=== PATIENT | male | born 1960 | race Caucasian/White ===

== ENCOUNTER → 2018-12-23 | Outpatient (CLI) | payer MEDICARE, MEDICAID, SELFPAY ==
[2018-12-23 11:26] LABS: International Normalized Ratio 2.7; Prothrombin Time (Protime)PT. 28.6 SECONDS (11.7-14.9)
== END | disposition home or self-care (01) ==
LOC: LABSPEC 11:02
PROVIDERS: Family Provider Family Medicine; PCP Family Medicine; Referring Provider Family Medicine; Visit Provider Family Medicine
DX: I48.91 Unspecified atrial fibrillation (principal); I26.99 Other pulmonary embolism without acute cor pulmonale
CPT/HCPCS: 85610

== ENCOUNTER 2019-02-03 09:15 | Emergency (ER) | payer MEDICARE, MEDICAID, SELFPAY ==
[2019-02-03] VITALS (7 sets, daily range): BP systolic 114–142; BP diastolic 71–95; PULSE 76–160; RESP 14–26; TEMP 36.4; O2SAT 94–100; BMI 58.0
--- NOTE | 2019-02-03 09:36 | EKG12_ITS ---
Test Reason : CP Blood Pressure : / mmHG Vent. Rate : 178 BPM Atrial Rate : 182 BPM P-R Int : 000 ms QRS Dur : 116 ms QT Int : 260 ms P-R-T Axes : 000 -28 134 degrees QTc Int : 447 ms Atrial fibrillation with rapid ventricular response with premature ventricular or aberrantly conducte d complexes Inferior infarct (cited on or before 14-SEP-2002) Anteroseptal infarct , age undetermined Marked ST abnormality, possible lateral subendocardial injury Abnormal ECG Confirmed by THEO OHARA ([id number]), field map editor FAY DAVIDSON ([id number]) on 02/08/2019 1:31:46 PM Referred By: DORETHA/DEBBIE Confirmed By:GEETHA OHARA
--- NOTE | 2019-02-03 09:38 | ED.VIS.GEN ---
History of Present Illness Chief Complaint: Palpitations Detail of Chief Complaint: A. fib with RVR Informant: Patient, PCP Onset: Days - Onset January 31 Context: Sudden Onset Timing: Continuous Quality: Palpitations/rapid heart rate Location: Chest Current Severity: Moderate Maximum Severity: Moderate Worsened by: Nothing Relieved by: Nothing Associated Symptoms: Dyspnea on exertion otherwise nothing Narrative: Patient is a 58-year-old male who was under the care of Dr. Anthony Huynh for age fibrillation, hypertension and hypercholesterolemia. Patient is on Coumadin. INR was 3.1 on February 01. He presents with palpitation. He complains of significant shortness of breath walking up incline. He states this is not normal for him. He denies chest pain, pressure or tightness. He denies neck pain or jaw pain. He denies pain to his shoulders or extremities. He has no other complaints. He last ate at 0445. Prior similar symptoms: No Recent Illness/Hospitalization: No - Past Medical History (1) History of atrial fibrillation Status: Acute (2) History of hypertension Status: Acute Past Medical History - Allergies and Home Meds Allergies/Adverse Reactions: Allergies No Known Allergies Allergy (Verified 02/03/19 09:16) Primary Care Physician: Jaime Muller MD [Primary Care Provider] - Prior records reviewed: Yes Surgical History: noncontributory Lives: Alone Smoking Status: Never smoker Alcohol: None Drugs: None Review of Systems General: Denies: Chills, Fever, Malaise, Sweats Eyes: Denies: Visual changes - bilaterally, Blurred Vision - bilaterally ENT: Denies: Bilateral ear pain, Rhinorrhea, Sore throat Cardiovascular: Reports: Palpitations, Heart racing. Denies: Chest pain Respiratory: Reports: Dyspnea, Dyspnea on exertion, Paroxysmal nocturnal dyspnea. Denies: Cough, Sputum, Orthopnea Gastrointestinal: Denies: Abdominal pain, Nausea, Vomiting, Diarrhea, Melena, Hematochezia Genitourinary: Denies: Dysuria, Hematuria, Frequency Musculoskeletal: Denies: Myalgias, Arthralgias, Neck pain, Back pain, Extremity Pain Skin: Denies: Rash, Wounds Neurological: Denies: Headache, Weakness, Parasthesia, Numbness Psych: Denies: Depression, Anxiety Hematologic: Denies: Easy bruising, Easy bleeding, Lymphadenopathy, -, - Allergy: Denies: Uticaria, Swelling of the mouth, Swelling of the tongue, -, - Physical Exam Vital Signs/Narrative: Vital Signs Temp Pulse Resp BP Pulse Ox 02/03/19 09:22 97.5 F L 76 18 142/76 H 99 Inital Vital Signs reviewed: Yes General: Well nourished, Well developed, Obese, No Acute Distress Head: Normocephalic, Atraumatic Eyes: Perrl, EOMI. Negative for: Pale conjunctiva, Scleral icterus, - ENT: Moist mucous membranes, No rhinorrhea Neck: Supple, Nontender, No lymphadenopathy, No JVD Cardiovascular: Irregular, Tachycardia Respiratory: No distress, CTA bilaterally, Chest nontender Abdomen: Soft, Nontender, Nondistended, Normal bowel sounds, No masses - Unable to determine secondary to body habitus Rectal: Deferred Back: Nontender, Normal Inspection Extremities: Nontender, Edema - 2-3+ Skin: Normal color, Rash - Venous stasis dermatitis lower extremity Neurological: Alert, Oriented x3, Cranial nerves II-XII grossly intact, Normal Strength, Normal Sensation Psychological: Normal affect, Normal Mood Diagnostic/Tx/Re-eval Laboratory Results 02/03/19 02/03/19 09:36 09:36 WBC 11.0 RBC 4.50 L Hgb 12.6 L Hct 38.6 L MCV 85.8 MCH 28.0 MCHC 32.6 RDW 15.2 H RDW Differential 48.0 H Plt Count 238 MPV 11.0 Sodium 136 Potassium 3.3 L Chloride 103 Carbon Dioxide 21.0 Anion Gap 12 BUN 25 H Creatinine 1.56 H Estim Creat Clear Calc 59.04 Est GFR (MDRD) Af Amer 59 L Est GFR (MDRD) Non-Af 49 L BUN/Creatinine Ratio 16.0 Glucose 182 H Calcium 9.2 Troponin I < 0.015 - EKG Initial EKG Interpretation: Atrial Fibrillation - Ventricular rate 178. QRS duration is prolonged at [address]-T wave changes noted. This may be rate dependent. Follow-up EKG Interpretation: Sinus Tachycardia - Ventricular rate 108. There are premature ventricular beats noted. There is a nonspecific intraventricular block with a QRS duration 156. NJ interval is 176. There are ST-T wave segments most likely secondary to the intraventricular conduction delay. - Medical Decision Making Patient is tachycardic with wide-complex diaphoretic complaint of dyspnea on exertion and has not eaten since 445 and has a documented INR 3.12 days ago plan is to cardiovert. Patient was consented for sedation with etomidate and cardioversion. He was given opportunity ask questions. None were asked. He states he has called to see Dr. Medley since Dr. Gaspar is retired. I panel was obtained as well as CBC to assess H&H and troponin to evaluate for cardiac ischemia. Case discussed with cardiology. Agrees with plan. Will increase beta-masha dose and patient to call office for appointment. Procedures Procedure(s): Deep sedation and cardioversion: 1. Patient was sedated with a total of 14 mg of etomidate. Total procedure time 7 minutes. 2. Patient was successfully cardioverted using 200 J biphasic mode. ED Disposition - Plan for ED Patient: Disposition: Home or Assisted Living Diagnosis: Paroxysmal atrial fibrillation with RVR Instructions: ED Afib Referrals: Jaime Muller MD [Primary Care Provider] - Loree Adrian MD [STAFF PHYSICIAN] - 5-7 Days Additional Instructions: Call office and tell them you were seen in the emergency department and need an appointment to be seen beginning of next week
[2019-02-03 09:46] LABS: Hematocrit 38.6 % (40-54); Hemoglobin 12.6 g/dl (13.0-16.5); Mean Corp Hgb Conc 32.6 g/gl (32-36); Mean Corpuscular Volume 85.8 fL (80-94); Platelet Count 238 K/mm3 (150-450); RBC Distribution Width CV 15.2 % (11.6-14.6); Scan Indicated on CBC? Y/N NO
[2019-02-03 10:02] LABS: Anion Gap 12 (5-15); BUN 25 mg/dL (7-18); Calcium,Total 9.2 mg/dL (8.5-10.1); Chloride 103 mmol/L (98-107); Creatinine, Serum 1.56 mg/dL (0.70-1.30); EST Glomerular Filtration Rate 49 mL/min (>60); Est Glom Filt Rate - Afr Amer 59 mL/min (>60); Estimated Creatinine Clearance 59.04 ml/min; Glucose 182 mg/dL (74-106); Potassium 3.3 mmol/L (3.5-5.1); Sodium Level 136 mmol/L (136-145)
--- NOTE | 2019-02-03 10:03 | EKG12_ITS ---
Test Reason : REPEAT Blood Pressure : / mmHG Vent. Rate : 108 BPM Atrial Rate : 108 BPM P-R Int : 176 ms QRS Dur : 156 ms QT Int : 394 ms P-R-T Axes : 000 -18 074 degrees QTc Int : 527 ms Sinus tachycardia with occasional Premature ventricular complexes Non-specific intra-ventricular conduction block Cannot rule out Inferior infarct , age undetermined Abnormal ECG Confirmed by THEO OHARA ([id number]), web content editor FAY DAVIDSON ([id number]) on 02/08/2019 1:32:08 PM Referred By: DORETHA Confirmed By:GEETHA OHARA
== END 2019-02-03 11:56 | disposition home or self-care (01) ==
PROVIDERS: Emergency Provider Emergency Medicine; Family Provider Family Medicine; PCP Family Medicine
DX: I48.0 Paroxysmal atrial fibrillation (principal); I45.4 Nonspecific intraventricular block; I10 Essential (primary) hypertension; E78.00 Pure hypercholesterolemia, unspecified; E66.9 Obesity, unspecified; I87.2 Venous insufficiency (chronic) (peripheral); Z79.01 Long term (current) use of anticoagulants; Z79.84 Long term (current) use of oral hypoglycemic drugs; Z79.899 Other long term (current) drug therapy
CPT/HCPCS: 80048; 84484; 85027; 92960; 93005; 99284; J7030; A4216; J0153

== ENCOUNTER 2019-02-04 03:47 | Emergency (ER) | payer MEDICARE, MEDICAID, SELFPAY ==
[2019-02-03 09:22] VITALS: BMI 58.0
[2019-02-04 03:48] VITALS: BP 162/87; PULSE 124; PULSE 125; RESP 26; RESP 27; TEMP 37.2; O2SAT 97; O2SAT 98; BMI 59.4
--- NOTE | 2019-02-04 04:01 | ED.VIS.GEN ---
History of Present Illness Chief Complaint: Palpitations Informant: Patient Narrative: Patient stated he woke up approximately an hour ago and felt some palpitation was a concern he was back in atrial fibrillation. He was recently seen in the emergency department yesterday and had A. fib with RVR. He was cardioverted. His beta-masha was increased. He has not taken it this morning. He said he has some coughing when he woke up and noticed that heart his heart rate was fast we came back in. Denies any chest pain shortness of breath or other symptoms. He has had A. fib paroxysmal in the past and he is on Coumadin. 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 He has an appointment made. - Past Medical History (1) History of atrial fibrillation Status: Acute (2) History of hypertension Status: Acute Past Medical History - Allergies and Home Meds Allergies/Adverse Reactions: Allergies No Known Allergies Allergy (Verified 02/03/19 09:16) Primary Care Physician: Jaime Muller MD [Primary Care Provider] - Prior records reviewed: Yes Surgical History: noncontributory Smoking Status: Never smoker Alcohol: None Drugs: None Review of Systems General: Denies: Chills, Fever, Sweats Eyes: Denies: Visual changes - bilaterally, Diplopia ENT: Denies: Rhinorrhea, Sore throat Cardiovascular: Reports: Palpitations. Denies: Chest pain Respiratory: Denies: Dyspnea, Cough, Dyspnea on exertion Gastrointestinal: Denies: Abdominal pain, Nausea, Vomiting, Diarrhea, Melena, Hematochezia Genitourinary: Denies: Dysuria, Hematuria, Frequency Musculoskeletal: Denies: Back pain, Extremity Pain Skin: Denies: Rash, Wounds Neurological: Denies: Headache, Weakness, Numbness Physical Exam Vital Signs/Narrative: Vital Signs Temp Pulse Resp BP Pulse Ox 02/04/19 03:48 98.9 F 124 H 26 H 162/87 H 98 General: Well nourished, Well developed, No Acute Distress Head: Normocephalic, Atraumatic Eyes: Perrl, EOMI ENT: Moist mucous membranes, No rhinorrhea Neck: Supple, Nontender Cardiovascular: Regular rhythm, No murmurs, Tachycardia. Negative for: Regular rate Respiratory: No distress, CTA bilaterally, Chest nontender Abdomen: Soft, Nontender, Nondistended, Normal bowel sounds Back: Nontender, Normal Inspection Extremities: Nontender, No edema Skin: Normal color, No rash Neurological: Alert, Oriented x3, Cranial nerves II-XII grossly intact, Normal Strength, Normal Sensation Psychological: Normal affect, Normal Mood Diagnostic/Tx/Re-eval - Medical Decision Making EKG shows a sinus rhythm. Positive PVCs. Significant artifact. Patient resting comfortably. He stated that his symptoms have resolved. At this time I think he is just having PVCs with sinus tach. Given a dose of labetalol. Labetalol but his heart rate down further into the 90s. Resting comfortably. Occasional PVCs which is likely what he is feeling. I feel he can be discharged home. He will continue his medication. He is in normal sinus rhythm ED Disposition - Plan for ED Patient: Disposition: Home or Assisted Living Diagnosis: Palpitations, Premature ventricular contractions Instructions: Premature Ventricular Contractions, ED Palpitations Referrals: Jaime Muller MD [Primary Care Provider] -
[2019-02-04 04:22] VITALS: BP 146/70; PULSE 114; O2SAT 94
[2019-02-04 04:46] VITALS: BP 127/76; PULSE 92
--- NOTE | 2019-02-04 04:49 | EKG12_ITS ---
Test Reason : CP Blood Pressure : / mmHG Vent. Rate : 126 BPM Atrial Rate : 120 BPM P-R Int : 000 ms QRS Dur : 118 ms QT Int : 362 ms P-R-T Axes : 000 -26 093 degrees QTc Int : 524 ms Atrial Fibrillation Anteroseptal infarct , age undetermined ST & T wave abnormality, consider lateral ischemia Abnormal ECG Confirmed by THEO OHARA ([id number]), primer expeditor and drier FAY DAVIDSON ([id number]) on 02/08/2019 1:18:42 PM Referred By: RAVINDRA Confirmed By:GEETHA OHARA
[2019-02-04 05:00] VITALS: BP 131/79; PULSE 94; RESP 18; O2SAT 94
== END 2019-02-04 05:06 | disposition home or self-care (01) ==
PROVIDERS: Emergency Provider Emergency Medicine; Family Provider Family Medicine; PCP Family Medicine
DX: I49.3 Ventricular premature depolarization (principal); R00.2 Palpitations; I48.0 Paroxysmal atrial fibrillation; I10 Essential (primary) hypertension; Z79.01 Long term (current) use of anticoagulants; Z79.899 Other long term (current) drug therapy
CPT/HCPCS: 93005; 96374; 99283; A4216

== ENCOUNTER → 2019-02-26 | Outpatient (CLI) | payer MEDICARE, MEDICAID, SELFPAY ==
[2019-02-10 13:46] VITALS: BMI 56.9
--- NOTE | 2019-02-26 13:31 | ECHOCS_ITS ---
Version 3 Reason For Study: Afib/Flutter Procedure This was a 2D Doppler, Color Flow transthoracic echocardiogram. The study was technically difficult. Contrast injection was performed. Exam performed in department. Left Ventricle Normal size and thickness. The estimated ejection fraction is 50-55 %. Stage 1 diastolic dysfunction. No regional wall motion abnormalities noted. Right Ventricle Normal RV size. Normal systolic function. Atria Normal left atrium. Normal right atrium. Mitral Valve There is no mitral valve stenosis. Trivial mitral valve insufficiency. Tricuspid Valve There is no tricuspid stenosis. Unable to estimate RV systolic pressure due to inadequate jet, pulmonary artery pressure probably normal. Aortic Valve Trisinus/trileaflet aortic valve. Aortic sclerosis, no stenosis. There is no aortic stenosis. No aortic valve insufficiency. Pulmonic Valve There is no pulmonic valvular stenosis. No pulmonic valve insufficiency. Great Vessels Normal aortic root. Pericardium/Pleural No pericardial effusion. Medication 22 gauge I.V. with prn adaptor inserted into right arm. Diluted definity 3ml given slow IV push to enhance endocardial definition. MMode/2D Measurements & Calculations LAV(MOD-bp): 84.8 ml SV(MOD-sp4): 67.6 ml LVAd ap4: 44.5 cm2 LAV(MOD-bp) Indexed: 28.4 ml/m2 EDV(MOD-sp4): 181.8 ml LAV(MOD-sp2): 71.1 ml EDV(sp4-el): 190.3 ml LAV(MOD-sp4): 96.6 ml LVAs ap4: 33.5 cm2 ESV(MOD-sp4): 114.1 ml ESV(sp4-el): 115.1 ml EF(MOD-sp4): 37.2 % EF(sp4-el): 39.5 % SV(sp4-el): 75.2 ml LA A4 area: 27.3 cm2 Time Measurements MV dec time: 0.22 sec Doppler Measurements & Calculations MV E max michelet: 59.9 cm/sec Lat Peak E' Michelet: 9.8 cm/sec Med Peak E' Michelet: 6.1 cm/sec MV A max michelet: 101.6 cm/sec E/E' lat: 6.1 E/E' med: 9.9 MV E/A: 0.59 MV V2 max: 109.8 cm/sec MV P1/2t max michelet: 75.1 cm/sec Ao V2 max: 135.9 cm/sec MV max P.8 mmHg MV P1/2t: 80.4 msec Ao max P.4 mmHg MV V2 mean: 65.2 cm/sec MV dec slope: 273.8 cm/sec2 MV mean P.0 mmHg MVA(P1/2t): 2.7 cm2 MV V2 VTI: 27.2 cm LV V1 max: 82.3 cm/sec PA V2 max: 115.6 cm/sec LV V1 max P.7 mmHg Interpretation Summary The estimated ejection fraction is 50-55 %. Stage 1 diastolic dysfunction. Trivial mitral valve insufficiency. Aortic sclerosis, no stenosis. The study was technically difficult. Diluted definity 3ml given slow IV push to enhance endocardial definition. The study was technically difficult. Ordering Physician: Loree Adrian Referring Physician: MD Renzo Jaime Performed By: Bharat Latham [facility]
== END | disposition home or self-care (01) ==
LOC: CVS 13:30
PROVIDERS: Family Provider Family Medicine; PCP Family Medicine; Referring Provider Specialist; Visit Provider Specialist
DX: I48.0 Paroxysmal atrial fibrillation (principal)
CPT/HCPCS: 93306; Q9957; A4216; C8929

== ENCOUNTER 2019-05-03 23:18 | Emergency (ER) | payer MEDICARE, MEDICAID, SELFPAY ==
[2019-03-03 10:08] VITALS: BMI 55.9
[2019-05-03 23:20] VITALS: BP 163/94; PULSE 90; RESP 16; TEMP 36.6; O2SAT 95; BMI 55.4
--- NOTE | 2019-05-03 23:34 | ED.VIS.GEN ---
History of Present Illness Chief Complaint: Laceration Narrative: Patient is a 59-year-old male who presents due to bleeding from a right fifth toe wound. He was clipping his nail and accidentally clipped the skin on the tip of his toe. He has done this before and is usually been able to control the bleeding after few minutes. However it has continued to ooze for a couple hours now. He is on warfarin. He otherwise has no complaints. Past Medical History - Allergies and Home Meds Allergies/Adverse Reactions: Allergies No Known Allergies Allergy (Verified 05/03/19 23:22) Primary Care Physician: Jaime Muller MD [Primary Care Provider] - Past Medical History: - - Diabetes, hypertension, hyperlipidemia, atrial fibrillation Surgical History: noncontributory Smoking Status: Never smoker Review of Systems All systems negative except as indicated General: Denies: Fever Cardiovascular: Denies: Chest pain Respiratory: Denies: Dyspnea Skin: Reports: Wounds Physical Exam Vital Signs/Narrative: Vital Signs Temp Pulse Resp BP Pulse Ox 05/03/19 23:20 97.8 F 90 16 163/94 H 95 Inital Vital Signs reviewed: Yes General: Well nourished Head: Normocephalic Eyes: EOMI ENT: Moist mucous membranes Cardiovascular: Regular rate Respiratory: No distress Extremities: - - There is a small less than 1 cm wound on the tip of the fifth toe where a small amount of skin is been clipped away. He is not briskly bleeding but this is continuing to slowly ooze despite direct pressure. Diagnostic/Tx/Re-eval - Medical Decision Making A Surgicel dressing was applied with hemostasis. We will observe here for a short time to ensure that he does not saturate the dressing or have any evidence of ongoing bleeding and patient will be discharged. ED Disposition - Plan for ED Patient: Disposition: Home or Assisted Living Diagnosis: Wound of right foot Instructions: LACERATION, All Referrals: Jaime Muller MD [Primary Care Provider] -
[2019-05-03 23:56] VITALS: BP 128/67; PULSE 88; RESP 16; O2SAT 98
== END 2019-05-03 23:59 | disposition home or self-care (01) ==
PROVIDERS: Emergency Provider Emergency Medicine; Family Provider Family Medicine; PCP Family Medicine
DX: S91.104A Unspecified open wound of right lesser toe(s) without damage to nail, initial encounter (principal); X58.XXXA Exposure to other specified factors, initial encounter; Y93.9 Activity, unspecified; Y92.9 Unspecified place or not applicable; E11.9 Type 2 diabetes mellitus without complications; I10 Essential (primary) hypertension; E78.5 Hyperlipidemia, unspecified; I48.91 Unspecified atrial fibrillation; Z79.01 Long term (current) use of anticoagulants; Z79.84 Long term (current) use of oral hypoglycemic drugs; Z79.899 Other long term (current) drug therapy
CPT/HCPCS: 99283

== ENCOUNTER 2021-09-15 11:30 | Emergency (ER) | payer MEDICARE, SELFPAY ==
[2021-09-15 11:31] VITALS: BP 170/81; PULSE 82; RESP 16; TEMP 35.7; BMI 56.7
--- NOTE | 2021-09-15 11:49 | EDS_ITS ---
HPI History of Present Illness Chief Complaint: Lower Extremity Injury Informant: patient Onset/Context/Timing Onset: Today Current Severity: Mild Maximum Severity: Mild Narrative Narrative: Patient presents with bleeding to the left fourth toe. He was trimming his toenails and actually cut his skin. He is on Coumadin. He has not been able to get the bleeding to stop. His INR was checked earlier this week and was 2.3. He states he checks it weekly and it is usually in the 2 range. [facility] Medical History (Updated 09/15/21 @ 12:[address] Rachel Oglesby MD) Atherosclerosis of coronary artery of [place] heart without angina pectoris Depressive disorder DVT (deep venous thrombosis) (~2002) Essential hypertension History of diabetic neuropathy History of ulcer of lower extremity (~2003) Hyperlipidemia Osteoarthritis Paroxysmal atrial fibrillation Pulmonary embolism (~2002) PVC's (premature ventricular contractions) Type 2 diabetes mellitus without complication Home Medications atorvastatin 20 mg PO QHS 02/03/19 [History Last Taken Unknown] atorvastatin 40 mg PO QHS 02/03/19 [History Last Taken Unknown] chlorthalidone 25 mg PO BID 02/03/19 [History Last Taken Unknown] clonidine HCl 0.2 mg PO BID 02/03/19 [History Last Taken Unknown] losartan 50 mg PO DAILY 02/03/19 [History Last Taken Unknown] metformin 1,000 mg tablet 1,000 mg PO BID tab 02/04/19 [History Last Taken Unknown] potassium chloride 20 mEq tablet,extended release(part/cryst) 20 meq PO DAILY 02/04/19 [History Last Taken Unknown] metoprolol succinate 200 mg tablet,extended release 24 hr 400 mg PO DAILY #60 tab 01/21/20 [Rx Last Taken Unknown] amlodipine 5 mg tablet 10 mg PO DAILY tab 06/19/20 [History Last Taken Unknown] glimepiride 4 mg tablet 8 mg PO DAILY tab 06/19/20 [History Last Taken Unknown] warfarin 5 mg tablet 10 mg PO MOWEFR tab 06/11/21 [History Last Taken Unknown] warfarin 5 mg tablet 15 mg PO SUTUTHSA tab 06/11/21 [History Last Taken Unknown] Allergy/AdvReac Type Severity Reaction Status Date / Time No Known Allergies Allergy Verified 09/15/21 11:32 Family History Mother Cancer liver Father Cancer leukemia Grandmother CAD (coronary artery disease) Surgical History History of cardioversion (02/03/19) History of gastric bypass (~2005) History of left heart catheterization (07/31/11) Social History Smoking Status: Never smoker alcohol intake: never substance use type: does not use caffeine: No ROS ROS ED Constitutional Constitutional ED: Denies chills or fever(s) Eyes Eyes: Denies change in vision ENT ENT ED: Denies sore throat Cardiovascular Cardiovascular: Denies chest pain Respiratory/Chest Respiratory/Chest: Denies cough or dyspnea Gastrointestinal Gastrointestinal: Denies abdominal pain, diarrhea, nausea or vomiting Genitourinary Genitourinary ED: Denies dysuria Musculoskeletal Musculoskeletal: Denies back pain Integumentary Reports other Details: Left fourth toe laceration ; Denies rash Neurologic Neurologic: Reports other Details: History of diabetic neuropathy ; Denies headache(s) or weakness Allergic/Immunologic Allergic/Immunologic ED: Denies urticaria EXAM Physical Exam Const Vital Signs: 09/15/21 11:31 Temperature 96.2 F L Temperature Source Temporal Pulse Rate 82 Respiratory Rate 16 Blood Pressure 170/81 H Blood Pressure Mean 110 Positive well nourished and well developed General Appearance ED: well developed HEENT Reports normocephalic and head/scalp atraumatic Eyes PERRL and EOMs intact bilaterally Neck supple Chest Wall inspection of chest normal and palpation of chest normal Resp normal respiratory effort and clear to auscultation bilaterally Cardio regular rate and regular rhythm GI normal to inspection, nondistended, normoactive bowel sounds Palpation: soft Back/Spine no CVA tenderness Extremity Extremity Narrative: 3 mm long laceration on the distal aspect of the left fourth toe. Mild bleeding noted. Full range of motion. Chronic paresthesias secondary to diabetic neuropathy. Neuro oriented x3 Sensorium / Orientation: alert Motor Exam: strength 5/5 throughout Psych mental status grossly normal [facility] Treatment and Re-Evaluation Comments:: Wound was cleansed. Surgifoam placed over the end of the toe and wrap applied. After 20 minutes foot is reexamined. No active bleeding at this time. Gauze dressing with overlying Gerhard wrap applied. Patient will leave this in place for the next 3 days. Discharge Plan Triage Chief Complaint: Lower Extremity Injury ED Provider: Rachel Oglesby Dx/Rx/DC Orders Clinical Impression: Laceration of toe Instructions: ED Laceration Small or ... Prescriptions: No Action potassium chloride 20 mEq tablet,ER particles/crystals 20 meq PO DAILY RF: 0 losartan 50 MG tablet 50 mg PO DAILY RF: 0 atorvastatin 40 MG tablet 40 mg PO QHS RF: 0 atorvastatin 20 MG tablet 20 mg PO QHS RF: 0 chlorthalidone 25 MG tablet 25 mg PO BID RF: 0 clonidine HCl 0.2 MG tablet 0.2 mg PO BID RF: 0 metformin 1,000 mg tablet 1,000 mg PO BID RF: 0 amlodipine 5 mg tablet 10 mg PO DAILY RF: 0 glimepiride 4 mg tablet 8 mg PO DAILY RF: 0 warfarin 5 mg tablet 15 mg PO SUTUTHSA RF: 0 warfarin 5 mg tablet 10 mg PO MOWEFR RF: 0 metoprolol succinate 200 mg tablet extended release 24 hr 400 mg PO DAILY Qty: 60 RF: 11 Primary Care Provider: Jaime Muller Referrals: Jaime Muller MD [Primary Care Provider] - As Needed Disposition Disposition: Home, Self Care
== END 2021-09-15 12:32 | disposition home or self-care (01) ==
PROVIDERS: Emergency Provider Emergency Medicine; PCP Family Medicine; Visit Provider Emergency Medicine
DX: S91.115A Laceration without foreign body of left lesser toe(s) without damage to nail, initial encounter (principal); I25.10 Atherosclerotic heart disease of native coronary artery without angina pectoris; Z86.718 Personal history of other venous thrombosis and embolism; X58.XXXA Exposure to other specified factors, initial encounter
CPT/HCPCS: 99282

== ENCOUNTER 2023-02-22 07:04 | Emergency (ER) | payer MEDICARE, SELFPAY ==
[2023-02-22 07:05] VITALS: BP 161/91; PULSE 80; RESP 16; TEMP 35.7; O2SAT 97; BMI 55.4
--- NOTE | 2023-02-22 07:18 | EX.ED.DYSGE1 ---
HPI History of Present Illness Chief Complaint: Numb/Ting Detail of Chief Complaint: Paresthesias in hands Informant: patient Narrative Narrative: Patient presents with paresthesias to both hands. Patient states initially he started with numbness and tingling in his right long finger distal phalanx area 5 or 6 days ago. For 5 days ago he developed some similar symptoms of numbness and tingling to the left long finger distal phalanx and left long finger distal phalanx. Patient went to urgent care yesterday and was told it might be circulation problem. Patient on Coumadin for history of DVT. Patient feels like maybe at times the fingertips get a little bit cold. He denies any injuries to his fingers. He does have history of low potassium and has been taking it regularly. Patient has been compliant with his Coumadin. [facility] Medical History Atherosclerosis of coronary artery of [place] heart without angina pectoris Depressive disorder DVT (deep venous thrombosis) (2002) Essential hypertension History of diabetic neuropathy History of ulcer of lower extremity (2003) Hyperlipidemia Morbid obesity Osteoarthritis Paroxysmal atrial fibrillation Pulmonary embolism (2002) PVC's (premature ventricular contractions) Type 2 diabetes mellitus without complication Home Medications atorvastatin 20 mg tablet 20 mg PO QHS 02/03/19 [History Last Taken Unknown] atorvastatin 40 mg tablet 40 mg PO QHS 02/03/19 [History Last Taken Unknown] chlorthalidone 25 mg tablet 25 mg PO BID 02/03/19 [History Last Taken Unknown] clonidine HCl 0.2 mg tablet 0.2 mg PO BID 02/03/19 [History Last Taken Unknown] losartan 50 mg tablet 50 mg PO DAILY 02/03/19 [History Last Taken Unknown] metformin 1,000 mg tablet 1,000 mg PO BID 02/04/19 [History Last Taken Unknown] potassium chloride 20 mEq tablet,extended release(part/cryst) 20 meq PO DAILY 02/04/19 [History Last Taken Unknown] metoprolol succinate 200 mg tablet,extended release 24 hr 400 mg (2 x 200 mg) PO DAILY #60 tabs 01/21/20 [Rx Last Taken Unknown] amlodipine 5 mg tablet 10 mg PO DAILY 06/19/20 [History Last Taken Unknown] glimepiride 4 mg tablet 8 mg PO DAILY 06/19/20 [History Last Taken Unknown] warfarin 5 mg tablet 10 mg PO MOWEFR 06/18/22 [History Last Taken Unknown] warfarin 5 mg tablet 15 mg PO SUTUTHSA 06/18/22 [History Last Taken Unknown] Allergy/AdvReac Type Severity Reaction Status Date / Time No Known Allergies Allergy Verified 02/22/23 07:19 Family History Mother Cancer liver Father Cancer leukemia Grandmother CAD (coronary artery disease) Surgical History History of cardioversion (02/03/19) History of gastric bypass (2005) History of left heart catheterization (07/31/11) Social History Smoking Status: Never smoker alcohol intake: never substance use type: does not use caffeine: No ROS ROS ED Review of Systems ROS Unobtainable: other Constitutional Constitutional ED: Reports lethargy; Denies chills, fever(s), sweats or weight loss Eyes Eyes: Denies blurry vision, change in vision or diplopia ENT ENT ED: Denies rhinorrhea or sore throat Cardiovascular Cardiovascular: Denies chest pain, orthopnea or racing heartbeat Respiratory/Chest Respiratory/Chest: Denies cough, dyspnea, dyspnea on exertion, orthopnea or sputum Gastrointestinal Gastrointestinal: Denies abdominal pain, diarrhea, nausea or vomiting Genitourinary Genitourinary ED: Denies dysuria, hematuria or urinary frequency Musculoskeletal Musculoskeletal: Denies arthralgias, back pain, myalgias or neck pain Integumentary Denies abscess, Abrasions or rash Neurologic Neurologic: Reports paresthesias; Denies headache(s) or weakness Psychiatric Psychiatric: Denies anxiety, depression or suicidal thoughts Endocrine Endocrinology: Denies polydipsia, polyphagia or polyuria Hematologic/Lymphatic Hematologic/Lymphatic: Denies easy bleeding, easy bruising or lymphadenopathy Allergic/Immunologic Allergic/Immunologic ED: Denies mouth swelling, tongue swelling or urticaria EXAM Physical Exam Const Vital Signs: 02/22/23 07:05 Temperature 96.2 F L Temperature Source Temporal Pulse Rate 80 Respiratory Rate 16 Blood Pressure 161/91 H Blood Pressure Mean 114 Pulse Ox 97 Oxygen Delivery Method Room Air Positive well nourished and well developed General Appearance ED: well developed and NAD HEENT Reports TM's clear and moist mucous membranes normocephalic and atraumatic; Negative for trauma or tenderness Tympanic Membrane ED: Yes TM's clear Eyes PERRL and EOMs intact bilaterally General Eye ED: Negative for pale conjunctiva or scleral icterus Neck no lymphadenopathy, supple and no JVD General: Negative for tenderness Chest Wall inspection of chest normal and palpation of chest normal Chest: Negative for tenderness Resp normal respiratory effort and clear to auscultation bilaterally Effort and Inspection: Negative for respiratory distress or pain with movement Auscultation: Negative for rhonchi, wheezes or diminished lung sounds Cardio regular rate, regular rhythm, S1 normal heart sound, S2 normal heart sound and no murmurs Peripheral Pulses: pulses 2+ throughout GI normal to inspection, nondistended, normoactive bowel sounds, soft to palpation, non-tender, non-distended and no masses Back/Spine no CVA tenderness and no thoracic nor lumbar tenderness Extremity Extremity Narrative: Evaluations of his hands revealed normal blood flow and normal cap refill. Fingertips are warm to the touch. Patient has normal range of motion flexion extension of all digits. No weakness in the extremities. No petechiae or purpura noted. General Extremety ED: Negative for edema General Extremity: Negative for edema Neuro oriented x3, CN's II-XII intact bilaterally, no sensory deficits noted and gait normal Sensorium / Orientation: awake, alert, oriented to person, oriented to place and oriented to time Motor Exam: strength 5/5 throughout and strength abnormal Psych mental status grossly normal Skin no rashes or lesions noted and no wounds MDM MDM MDM Narrative Medical decision making narrative: Patient presents with localized paresthesias to fingertips of both hands. Clinically I suspect a peripheral neuropathy. Patient is a diabetic and this may be related to diabetic peripheral neuropathy. Patient has history of peripheral neuropathy to his feet. Given his history of hypokalemia and recent worsening symptoms we will check a BMP to evaluate for electrolyte abnormality. I do not feel patient has circulation problem as he has warm hands and normal pulses and normal cap refill. Patient's BMP was unremarkable. This point suspect likely peripheral neuropathy related to diabetes. Patient advised to follow-up with his primary care physician 3 to 5 days. Discharged home stable condition. Lab Data Attestation: I reviewed the patient's lab results. Labs: Laboratory Results - last 24 hr 02/22/23 07:25 Sodium 135 L Potassium 3.7 Chloride 102 Carbon Dioxide 25.0 Anion Gap 8 BUN 21 H Creatinine 1.20 Estim Creat Clear Calc 73.06 Est GFR (MDRD) Af Amer 79 Est GFR (MDRD) Non-Af 65 BUN/Creatinine Ratio 17.5 Glucose 222 H Calcium 9.1 Discharge Plan Triage Chief Complaint: Numb/Ting ED Provider: Brett Abreu Dx/Rx/DC Orders Clinical Impression: Neuropathy Instructions: ED Neuropathy, Peripheral Prescriptions: No Action potassium chloride 20 mEq tablet,ER particles/crystals 20 meq PO DAILY warfarin 5 mg tablet 15 mg PO SUTUTHSA Patient Comments: PCP managing INR warfarin 5 mg tablet 10 mg PO MOWEFR Patient Comments: PCP managing INR losartan 50 MG tablet 50 mg PO DAILY Patient Comments: TAKE 1 TABLET BY MOUTH EVERY DAY atorvastatin 40 MG tablet 40 mg PO QHS atorvastatin 20 MG tablet 20 mg PO QHS chlorthalidone 25 MG tablet 25 mg PO BID clonidine HCl 0.2 MG tablet 0.2 mg PO BID metformin 1,000 mg tablet 1,000 mg PO BID amlodipine 5 mg tablet 10 mg PO DAILY glimepiride 4 mg tablet 8 mg PO DAILY metoprolol succinate 200 mg tablet extended release 24 hr 400 mg PO DAILY Qty: 60 11RF Primary Care Provider: Jaime Muller Referrals: Jaime Muller MD [[facility]] - 3-5 Days Disposition Disposition: Home, Self Care Discharge Date/Time: 02/22/23 08:58
[2023-02-22 08:45] LABS: Anion Gap 8 (5-15); BUN 21 mg/dL (7-18); BUN/Creat Ratio 17.5 RATIO (10-20); Calcium,Total 9.1 mg/dL (8.5-10.1); Chloride 102 mmol/L (98-107); EST Glomerular Filtration Rate 65 mL/min (>60); Est Glom Filt Rate - Afr Amer 79 mL/min (>60); Estimated Creatinine Clearance 73.06 ml/min; Glucose 222 mg/dL (74-106); Potassium 3.7 mmol/L (3.5-5.1); Sodium Level 135 mmol/L (136-145)
== END 2023-02-22 08:58 | disposition home or self-care (01) ==
PROVIDERS: Emergency Provider Emergency Medicine; PCP Family Medicine; Visit Provider Emergency Medicine
DX: E11.40 Type 2 diabetes mellitus with diabetic neuropathy, unspecified (principal); I25.10 Atherosclerotic heart disease of native coronary artery without angina pectoris; I10 Essential (primary) hypertension; E78.5 Hyperlipidemia, unspecified; Z86.718 Personal history of other venous thrombosis and embolism; Z79.01 Long term (current) use of anticoagulants; Z79.899 Other long term (current) drug therapy; Z79.84 Long term (current) use of oral hypoglycemic drugs
CPT/HCPCS: 36415; 80048; 99282

== ENCOUNTER 2023-12-17 05:54 | Emergency (ER) | payer MEDICARE, SELFPAY ==
[2023-12-17 05:54] VITALS: BP 142/78; PULSE 88; RESP 20; TEMP 36.3; O2SAT 98; BMI 55.9
--- NOTE | 2023-12-17 06:25 | CT_ITS ---
INDICATION: hematuria EXAMINATION: CT ABDOMEN AND PELVIS WITHOUT CONTRAST - CT Abdomen And Pelvis W/O Contrast Injection TECHNIQUE: Helically acquired images were obtained of the abdomen and pelvis without oral or IV contrast. A radiation dose optimization technique was used for this scan. IV Contrast dosage and agent: None. Oral contrast: None. RADIATION DOSAGE (If Supplied By Facility): CTDIvol = ( 24.18 ) mGy, DLP = ( 1413.58 ) mGycm COMPARISON: No relevant prior comparison study available FINDINGS: LOWER CHEST: Lung bases are clear. No cardiomegaly or pericardial effusion. LIVER: Homogeneous. No focal mass. GALLBLADDER AND BILIARY TREE: Multiple faint calcified gallstones. No gallbladder distension or wall edema. No intra- or extrahepatic biliary ductal dilation. PANCREAS: No focal cystic or solid mass. SPLEEN: Normal size without focal cystic or solid mass. ADRENAL GLANDS: No nodules. KIDNEYS AND URETERS: There is 19 mm stone in the right renal pelvis. There is mild right hydronephrosis . PERITONEUM: No ascites or free air. No other fluid collection. BOWEL: No evidence of acute appendicitis. No stomach or bowel distension. No focal inflammatory change. LYMPH NODES: No enlarged mesenteric or retroperitoneal lymph nodes. VESSELS: Aorta is non-dilated. URINARY BLADDER: Unremarkable. REPRODUCTIVE ORGANS: No pelvic masses. ABDOMINAL WALL: No discrete abdominal or pelvic wall hernia. BONES: No lytic or blastic abnormality. CT/Abdomen/Pelvis without Cont IMPRESSION: There is 19 mm stone in the right renal pelvis. There is mild right hydronephrosis . Cholelithiasis. Electronically Signed: El Russell MD at 8:25 EDT ,
--- NOTE | 2023-12-17 06:26 | EDS_ITS ---
HPI History of Present Illness Chief Complaint: Flank Pain Informant: patient Narrative Narrative: 63-year-old male presents with intermittent lightheadedness without syncope. He is concerned it is due to blood loss because he has had hematuria for the past 2 weeks. He had an outpatient ultrasound that according to him showed a kidney stone on the right. He has had no back, abdominal, or flank pain. He has had no dysuria. He has had no urinary retention. He is on warfarin because of a history of a DVT and PE that was diagnosed in 1993, and he states he has a history of paroxysmal atrial fibrillation. His last INR was within the past week and was 2.5 according to the patient who checks it himself. When asked why he is not on one of the new medications, he states he does not know, he was not even aware that they were newer medications. He has not been advised to discontinue his warfarin recently. States yesterday he saw a urologist in the [facility] in [place] who ordered an outpatient CT of the abdomen/pelvis that he is supposed to get in about 2 weeks. The lightheadedness he has been getting has been with activities, and also when he has coughing which happens on occasion. States a couple times he has spit up small amount of phlegm but no blood. He denies any chest discomfort, orthopnea, fevers or chills, or dyspnea. [facility] Medical History Atherosclerosis of coronary artery of [place] heart without angina pectoris Depressive disorder DVT (deep venous thrombosis) (2002) Essential hypertension History of diabetic neuropathy History of ulcer of lower extremity (2003) Hyperlipidemia Morbid obesity Osteoarthritis Paroxysmal atrial fibrillation Pulmonary embolism (2002) PVC's (premature ventricular contractions) Type 2 diabetes mellitus without complication Home Medications atorvastatin 20 mg tablet 20 mg PO QHS 02/03/19 [History Last Taken Unknown] atorvastatin 40 mg tablet 40 mg PO QHS 02/03/19 [History Last Taken Unknown] chlorthalidone 25 mg tablet 25 mg PO BID 02/03/19 [History Last Taken Unknown] clonidine HCl 0.2 mg tablet 0.2 mg PO BID 02/03/19 [History Last Taken Unknown] losartan 50 mg tablet 50 mg PO DAILY 02/03/19 [History Last Taken Unknown] metformin 1,000 mg tablet 1,000 mg PO BID 02/04/19 [History Last Taken Unknown] potassium chloride 20 mEq tablet,extended release(part/cryst) 20 meq PO DAILY 02/04/19 [History Last Taken Unknown] metoprolol succinate 200 mg tablet,extended release 24 hr 400 mg (2 x 200 mg) PO DAILY #60 tabs 01/21/20 [Rx Last Taken Unknown] amlodipine 5 mg tablet 10 mg PO DAILY 06/19/20 [History Last Taken Unknown] glimepiride 4 mg tablet 8 mg PO DAILY 06/19/20 [History Last Taken Unknown] warfarin 5 mg tablet 10 mg PO MOWEFR 06/18/22 [History Last Taken Unknown] warfarin 5 mg tablet 15 mg PO SUTUTHSA 06/18/22 [History Last Taken Unknown] Allergy/AdvReac Type Severity Reaction Status Date / Time No Known Allergies Allergy Verified 11/27/23 10:54 Family History Mother Cancer liver Father Cancer leukemia Grandmother CAD (coronary artery disease) Surgical History History of cardioversion (02/03/19) History of gastric bypass (2005) History of left heart catheterization (07/31/11) Social History Smoking Status: Never smoker alcohol intake: never substance use type: does not use caffeine: No ROS ROS ED Constitutional Constitutional ED: Denies chills or fever(s) Eyes Eyes: Denies change in vision or diplopia ENT ENT ED: Denies rhinorrhea or sore throat Cardiovascular Cardiovascular: Reports as per HPI and lightheadedness; Denies chest pain, palpitations or syncope Respiratory/Chest Respiratory/Chest: Reports cough; Denies dyspnea Gastrointestinal Gastrointestinal: Denies abdominal pain, diarrhea, nausea or vomiting Genitourinary Genitourinary ED: Reports as per HPI and hematuria; Denies dysuria Musculoskeletal Musculoskeletal: Denies back pain or neck pain Integumentary Denies abscess or rash Neurologic Neurologic: Denies headache(s), paresthesias or weakness Psychiatric Psychiatric: Denies anxiety or suicidal thoughts EXAM Physical Exam Const Vital Signs: 12/17/23 05:54 04/24/24 06:30 Temperature 97.4 F L Temperature Source Temporal Pulse Rate 88 Pulse Rate [Lying] 79 Pulse Rate [Sitting (for 1 minute prior to obtaining)] 82 Pulse Rate [Standing (for 1 minute prior to obtaining)] 89 Respiratory Rate 20 H Blood Pressure 142/78 H Blood Pressure [Lying] 123/65 H Blood Pressure [Sitting (for 1 minute prior to obtaining)] 122/71 H Blood Pressure [Standing (for 1 minute prior to obtaining)] 117/74 Blood Pressure Mean 99 Blood Pressure Mean [Lying] 84 Blood Pressure Mean [Sitting (for 1 minute prior to obtaining)] 88 Blood Pressure Mean [Standing (for 1 minute prior to obtaining)] 88 Pulse Ox 98 Oxygen Delivery Method Room Air Positive well nourished and well developed General Appearance ED: well developed and NAD HEENT Reports moist mucous membranes normocephalic and atraumatic Eyes PERRL and EOMs intact bilaterally Neck full ROM and supple Resp normal respiratory effort and clear to auscultation bilaterally Cardio regular rate, regular rhythm and no murmurs GI non-tender and non-distended Auscultation: normoactive bowel sounds Palpation: soft Back/Spine no CVA tenderness General Back: other FROM Extremity normal to inspection General Extremety ED: Negative for edema, pulses abnormal or tenderness General Extremity: Negative for edema or pulses abnormal Neuro oriented x3, CN's II-XII intact bilaterally and no sensory deficits noted Sensorium / Orientation: awake and alert Motor Exam: strength 5/5 throughout Skin no rashes or lesions noted and no wounds MDM MDM MDM Narrative Medical decision making narrative: Patient's hemoglobin is 12.5, similar to the 12.6 he was in 2019. Orthostatics are negative. He was given a liter of IV fluids anyway. He felt relatively well. The rest of his labs are unremarkable. I do not think we need to get a urinalysis. I did, however, repeat his PT/INR, it is 2.6. I also obtained a CT although he had it scheduled as an outpatient, so that I could get a better idea if he needs something done more urgently for his gross hematuria. I reviewed the images and the report which I agree with, it shows a large stone that is nonobstructing within the right kidney and no other acute inflammatory conditions or abnormalities although incidental cholelithiasis was seen. This explains why he is not having pain. Given his clinical and hemodynamic stability and the fact that he is therapeutic on his anticoagulant, I think he can be discharged home with instructions to discontinue the anticoagulant. As I discussed with the patient who agrees with me, in my judgment the risk of continuing the anticoagulant and bleeding from his genitourinary tract outweighs the benefit of the anticoagulant given that his DVT and PE were literally 30 years ago, and he currently is not in A-fib. I advised him to hold his warfarin and also to call his urologist to discuss their opinion as well, and in addition to seek close outpatient follow-up as soon as possible given that he no longer needs to wait until his outpatient CT is done. With regards to the CT, I had the results sent to the [facility] water server so that when he follows up they may see the images without having to repeat them. Lab Data Attestation: I reviewed the patient's lab results. Labs: Laboratory Results - last 24 hr 12/17/23 06:49 WBC 7.5 RBC 4.45 L Hgb 12.5 L Hct 38.7 L MCV 87.0 MCH 28.1 MCHC 32.3 RDW Std Deviation 46.8 H RDW Coeff of Celia 14.7 H Plt Count 171 MPV 11.4 Immature Gran % (Auto) 0.400 Neut % (Auto) 80.5 H Lymph % (Auto) 11.0 L [place] % (Auto) 6.4 Eos % (Auto) 0.9 Baso % (Auto) 0.8 Absolute Neuts (auto) 6.1 Absolute Lymphs (auto) 0.83 Nucleated RBC % 0 PT 27.8 H INR 2.6 Sodium 139 Potassium 3.7 Chloride 105 Carbon Dioxide 29.0 Anion Gap 5 BUN 26 H Creatinine 1.18 Estim Creat Clear Calc 111.45 Est GFR (MDRD) Af Amer 80 Est GFR (MDRD) Non-Af 66 BUN/Creatinine Ratio 22.0 H Glucose 256 H Calcium 9.1 Radiography Diagnostic Testing: Clinical Impression(s) from Imaging Studies Abdomen/Pelvis CT 12/17/23 06:25 IMPRESSION: There is 19 mm stone in the right renal pelvis. There is mild right hydronephrosis . Cholelithiasis. Electronically Signed: El Russell MD at 8:25 EDT , Discharge Plan Triage Chief Complaint: Flank Pain ED Provider: Oleksandr Gasca Dx/Rx/DC Orders Clinical Impression: Episodic lightheadedness, Warfarin anticoagulation, Hematuria, Right nephrolithiasis Instructions: ED Hematuria Prescriptions: Continued potassium chloride 20 mEq tablet,ER particles/crystals 20 meq PO DAILY losartan 50 MG tablet 50 mg PO DAILY Patient Comments: TAKE 1 TABLET BY MOUTH EVERY DAY atorvastatin 40 MG tablet 40 mg PO QHS atorvastatin 20 MG tablet 20 mg PO QHS chlorthalidone 25 MG tablet 25 mg PO BID clonidine HCl 0.2 MG tablet 0.2 mg PO BID metformin 1,000 mg tablet 1,000 mg PO BID amlodipine 5 mg tablet 10 mg PO DAILY glimepiride 4 mg tablet 8 mg PO DAILY metoprolol succinate 200 mg tablet extended release 24 hr 400 mg PO DAILY Qty: 60 11RF Held warfarin 5 mg tablet 15 mg PO SUTUTHSA Hold Instructions: until instructed by your doctor to resume Patient Comments: PCP managing INR warfarin 5 mg tablet 10 mg PO MOWEFR Hold Instructions: until instructed by your doctor to resume Patient Comments: PCP managing INR Primary Care Provider: Jaime Muller Referrals: Jaime Muller MD [Primary Care Provider] - As soon as possible (and/or your urologist) Disposition Disposition: Home, Self Care
[2023-12-17 06:30] VITALS: BP 117/74; BP 122/71; BP 123/65; PULSE 79; PULSE 82; PULSE 89
[2023-12-17] MEDS: 0.9% Normal Saline (1000mL) 1,000 ML 250 ML IV (06:47)
[2023-12-17 06:57] LABS: Absolute Lymphocyte Count 0.83 X10^3/uL (0.83-4.51); Absolute Neutrophil Count 6.1 X10^3/uL (2.0-7.7); Basophil# 0.06 X10^3/uL; Basophil% 0.8 % (0-1); Eosinophil# 0.07 X10^3/uL; Eosinophils% 0.9 % (0-5); Hematocrit 38.7 % (40-54); Hemoglobin 12.5 g/dL (13.0-16.5); Lymphocyte # 0.83 X10^3/ul (0.83-4.51); Mean Corp Hgb Conc 32.3 g/dL (32-36); Mean Corpuscular Hgb 28.1 pg (27.0-32.0); Mean Platelet Vol. 11.4 fl (6.2-12.0); Monocyte# 0.48 X10^3/uL; Monocyte% 6.4 % (0-10); NRBC Flagged by Analyzer 0 % (0-5); Neutrophil # 6.05 X10^3/uL (2.7-7.7); Neutrophil % 80.5 % (47-70); Platelet Count 171 K/mm3 (150-450); RBC Distribution Width CV 14.7 % (11.6-14.6); RBC Distribution Width SD 46.8 fl (35.1-43.9); Red Blood Count 4.45 M/mm3 (4.6-6.2); White Blood Count 7.5 K/mm3 (4.4-11.0)
[2023-12-17 07:11] LABS: Anion Gap 5 (5-15); BUN 26 mg/dL (7-18); Calcium,Total 9.1 mg/dL (8.5-10.1); Chloride 105 mmol/L (98-107); Creatinine, Serum 1.18 mg/dL (0.70-1.30); EST Glomerular Filtration Rate 66 mL/min (>60); Est Glom Filt Rate - Afr Amer 80 mL/min (>60); Estimated Creatinine Clearance 111.45 ml/min; Glucose 256 mg/dL (74-106); Potassium 3.7 mmol/L (3.5-5.1); Sodium Level 139 mmol/L (136-145)
[2023-12-17 07:12] LABS: International Normalized Ratio 2.6; Prothrombin Time (Protime)PT. 27.8 SECONDS (11.7-14.9)
[2023-12-17 08:39] VITALS: BP 140/73; PULSE 81; RESP 16; TEMP 36.4; O2SAT 98
== END 2023-12-17 08:41 | disposition home or self-care (01) ==
PROVIDERS: Emergency Provider Emergency Medicine; PCP Family Medicine; Visit Provider Emergency Medicine
DX: R42 Dizziness and giddiness (principal); I48.0 Paroxysmal atrial fibrillation; E11.9 Type 2 diabetes mellitus without complications; N13.2 Hydronephrosis with renal and ureteral calculous obstruction; R31.0 Gross hematuria; Z79.01 Long term (current) use of anticoagulants; I25.10 Atherosclerotic heart disease of native coronary artery without angina pectoris; I10 Essential (primary) hypertension; E78.5 Hyperlipidemia, unspecified; Z79.899 Other long term (current) drug therapy; Z79.84 Long term (current) use of oral hypoglycemic drugs
CPT/HCPCS: 74176; 80048; 85025; 85610; 96360; 96361; 99284; J7030